=== PATIENT | male | born 1965 | race Caucasian/White ===

== ENCOUNTER 2023-11-29 17:08 | Emergency (ER) | payer MEDICARE, OTHER ==
[~2023-11-29] VITALS: Ht 188 cm; Wt 91.5 kg
[~2023-11-29 17:08] MED LIST: CYCL-1 PO; HYDR-4383 PO; METH4TAB3 PO
[2023-11-29 18:20] LABS: ALBUMIN 4.7 G/DL (3.4-5.0); ANION GAP 8 (8-16); BLOOD UREA NITROGEN 19 MG/DL (7-18); BUN/CREATININE RATIO 18.1 (10.0-20.0); CALCIUM 9.8 MG/DL (8.5-10.1); CHLORIDE 104 MMOL/L (99-107); CREATININE 1.05 MG/DL (0.60-1.10); ETHANOL < 10 MG/DL (<10); GLUCOSE 102 MG/DL (70-104); POTASSIUM 4.1 MMOL/L (3.5-5.1); SALICYLATE 2.2 MG/DL (4.0-20.0); SODIUM 141 MMOL/L (135-145); TOTAL CARBON DIOXIDE 28.6 MMOL/L (24-32); eCRCL 89 ML/MIN; eGFR 73 ML/MIN
[2023-11-29 18:22] LABS: BASOPHILS % (AUTO) 0.5 % (0-1); EOSINOPHILS % (AUTO) 0.3 % (0-6); HEMATOCRIT 42.8 % (42.0-52.0); LYMPHOCYTES # (AUTO) 1.4 X10'3 (1.1-4.8); LYMPHOCYTES % (AUTO) 18.7 % (21-51); MEAN CORPUSCULAR HGB CONC 35.1 g/dL (33.0-36.5); MEAN CORPUSCULAR VOLUME 88.4 FL (78-98); MEAN PLATELET VOLUME 8.1 FL (7.4-10.4); MONOCYTES # (AUTO) 0.6 X10'3 (0-0.9); MONOCYTES % (AUTO) 7.4 % (2-12); NEUTROPHILS # (AUTO) 5.6 X10'3 (1.8-7.7); NEUTROPHILS % (AUTO) 73.1 % (42-75); PLATELET COUNT 243 X10'3 (140-440); RED BLOOD COUNT 4.84 X10'6 (4.70-6.10); WHITE BLOOD COUNT 7.7 X10'3 (4.5-11.0)
[2023-11-29 18:27] LABS: ACETAMINOPHEN < 2.0 UG/ML (10-30)
[2023-11-29] MEDS: normal saline 1000ML IV soln IVB ONE (19:35)
[2023-11-29] MEDS: HYDROcodone/acetaminophen 10/325mg tab PO ONE (20:15)
[2023-11-29] MEDS: LORazepam 2 mg/ml vial IV ONE (20:48)
[2023-11-29 21:03] LABS: THYROID STIMULATING HORMONE 1.21 ulU/ml (0.34-4.50)
[2023-11-29 21:43] LABS: BILIRUBIN,URINE NEGATIVE (Neg); CLARITY,URINE CLEAR (Clear); COLOR,URINE STRAW (Yellow); GLUCOSE, URINE NEGATIVE (Neg); KETONES,URINE NEGATIVE (Neg); LEUKOCYTE ESTERASE ,URINE NEGATIVE (Neg); NITRITES, URINE NEGATIVE (Neg); OCCULT BLOOD,URINE NEGATIVE (Neg); PROTEIN,URINE NEGATIVE (Neg); UROBILINOGEN,URINE 0.2 E.U/dL (0.2-1.0)
[2023-11-29 21:54] LABS: URINE AMPHETAMINE SCREEN NEGATIVE (Neg); URINE BARBITUATE SCREEN NEGATIVE (Neg); URINE BENZODIAZEPINES SCREEN NEGATIVE (Neg); URINE CANNABINOID SCREEN POSITIVE (Neg); URINE COCAINE SCREEN NEGATIVE (Neg); URINE METHADONE SCREEN NEGATIVE (Neg); URINE OPIATE SCREEN NEGATIVE (Neg); URINE PHENCYCLIDINE SCREEN NEGATIVE (Neg)
[2023-11-29 22:04] LABS: UA COLLECTION TYPE URINAL
[2023-11-29] MEDS: ziprasidone IM 20mg inj **IM only IM ONE (22:41)
[2023-11-29 22:45] VITALS: TEMP 98.6
[2023-11-30] MEDS: quetiapine 100mg tablet PO STA (03:42)
[2023-11-30 07:45] VITALS: BP 127/81; PULSE 81; O2SAT 96
[2023-11-30 10:30] VITALS: RESP 16
[2023-11-30] MEDS: HYDROcodone/acetaminophen 10/325mg tab PO ONE (10:30)
[2023-11-30] MEDS: quetiapine 100mg tablet PO ONE (10:31)
== END 2023-11-30 11:05 | disposition home or self-care (01) ==
LOC: ER 17:08
DX: F43.10 Post-traumatic stress disorder, unspecified (principal); R44.0 Auditory hallucinations; G89.29 Other chronic pain; Z79.899 Other long term (current) drug therapy; Z20.822 Contact with and (suspected) exposure to COVID-19; X58.XXXA Exposure to other specified factors, initial encounter; Y93.89 Activity, other specified; Y92.89 Other specified places as the place of occurrence of the external cause; Y99.8 Other external cause status
CPT/HCPCS: 36415; 70450; 71045; 80048; 80305; 80320; 80329; 81003; 83605; 84443; 84484; 85025; 87040; 87811; 93005; 96361; 96372; 96374; 99285; J2060; J3486; J7030

== ENCOUNTER 2023-11-30 19:49 | Emergency (ER) | payer OTHER ==
[~2023-11-30] VITALS: Ht 188 cm; Wt 95.5 kg
[2023-11-30 20:00] VITALS: BP 125/86; PULSE 98; RESP 18; TEMP 98.3; O2SAT 96
== END 2023-11-30 21:53 | disposition home or self-care (01) ==
LOC: ER 19:50
DX: R45.1 Restlessness and agitation (principal); F12.10 Cannabis abuse, uncomplicated; R11.2 Nausea with vomiting, unspecified; Z88.8 Allergy status to other drugs, medicaments and biological substances; Z79.899 Other long term (current) drug therapy
CPT/HCPCS: 93005; 99283